=== PATIENT | male | born 1960 | race Native Hawaiian/Other Pacific Islander ===

== ENCOUNTER 2019-01-16 07:40 | Inpatient (IN) ==
--- NOTE | 2019-01-02 12:40 | Anesthesiology Consultation ---
Date of Service January 02, 2019 Assessment & Plan (1) Encounter for pre-operative examination: Plan: - Check BSG AM DOS - Okay to continue ASA perioperatively per surgeon. - Cardio= 10/23/18= "BP is at upper limit of acceptable (140's/80's; similar BP at PAT visit 12/2018). Continued on current regimen. - PCP= 01/06/19= "medically stable." Chart Review Chart Review: Acceptable Risk for Surgery and Patient seen in Pre Admission Testing Teaching & Discussion Pre-Anesthesia Teaching/Discussion Notes: Instructed NPO after midnight before surgery,except medications with 15 cc of water. Medication instructions provided according to the [facility] guidelines. History Surgery Operation Date: 01/16/19 14:15 Proposed Procedures p L4-L5 Decompression and Fusion - Willie Kelly DO Height/Weight Height: 5 ft 8 in Weight: 125.9 kg Allergies Allergy/AdvReac Type Severity Reaction Status Date / Time Sulfa (Sulfonamide Allergy Unknown Rash/ITCHY Verified 12/26/18 11:21 Antibiotics) Medications Home Medications Medication Instructions Recorded Confirmed Last Taken amlodipine 5 mg PO QAM 12/26/18 12/26/18 12/26/18 aspirin [Aspir-81] 81 mg PO DAILY 12/26/18 12/26/18 12/26/18 atorvastatin 40 mg PO HS 12/26/18 12/26/18 12/25/18 citalopram 20 mg PO QAM 12/26/18 12/26/18 12/26/18 clonidine HCl 0.1 mg PO BID 12/26/18 12/26/18 12/26/18 coenzyme Q10 [CoQ-10] 100 mg PO QAM 12/26/18 12/26/18 12/26/18 enalapril maleate 10 mg PO QAM 12/26/18 12/26/18 12/26/18 esomeprazole magnesium 40 mg PO QAM 12/26/18 12/26/18 12/26/18 glipizide 2.5 mg PO QAM 12/26/18 12/26/18 12/26/18 hydralazine 25 mg PO TID 12/26/18 12/26/18 12/26/18 hydrochlorothiazide 12.5 mg PO QAM 12/26/18 12/26/18 12/26/18 ibuprofen 600 mg PO BID 12/26/18 12/26/18 12/26/18 insulin aspart U-100 [Novolog 10 unit SUBCUT TIDM 12/26/18 12/26/18 Unknown Flexpen U-100 Insulin] insulin glargine [Basaglar KwikPen 35 unit SUBCUT HS 12/26/18 12/26/18 12/25/18 U-100 Insulin] lorazepam 0.5 mg PO BID 12/26/18 12/26/18 12/26/18 metformin 1,000 mg PO BID 12/26/18 12/26/18 12/26/18 multivitamin [Multiple Vitamins] 1 tab PO DAILY 12/26/18 12/26/18 Unknown Past Medical History Medical History Acid reflux Anxiety Diabetes IDDM Hyperlipidemia Hypertension Morbid obesity Sleep apnea CPAP Spinal stenosis Past Family History Family History Mother Family history of esophageal cancer Mother Family history of breast cancer Father Family history of lung cancer Past Surgical History Surgical History History of arthroscopy of left knee History of cardiac catheterization NO STENTS History of colonoscopy History of nasal surgery DEVIATED SEPTUM History of vasectomy Past Anesthesia History No Hx of Anesthesia Complications and No Family Hx of Anesthesia Complications History of PONV No Motion Sickness Screening History of Motion Sickness: No Social History Smoking Status: Former smoker tobacco type: cigarettes Do You Dip or Chew Tobacco: Yes (1 CAN/DAY - ADVISED NOT TO CHEW AM DOS) Smoking End Date: QUIT 3 YEARS AGO Hx Alcohol Use: Yes Alcohol type: beer alcohol intake frequency: a few times a week substance use type: does not use Exercise / Class Metabolic Activity III < 4 Walking/Shop/Light housework Review of Systems Bronchitis 11/2018 resolved s/p z-taisha. Patient denies chest pain, shortness of breath, wheezing, palpitations. Physical Exam Vital Signs VITALS BP 146/83 P 63 TEMP 98.5 SP02 98%RA RESP 18 Short, thick neck. Full neck and c-spine range of motion. Full TMJ range of motion. TMD 4 finger breaths Mallampati Score 2 Dentition: several missing sides/molars Lungs: clear throughout to auscultation Cardiac: regular rate and rhythm, no murmurs noted Spine: normal Carotid arteries: negative bruit Extremities: no edema Trimmed clifford. Testing Electrocardiogram Date: 01/02/19 Findings: + SB @ (55) Chest X-Ray Date: 02/03/18 Findings: + NAD Laboratory Results 01/02/19 13:26 01/02/19 13:06 Blood Type B Positive 01/02/19 13:06 Antibody Screen NEGATIVE 01/02/19 13:06 PT 10.0 Seconds (9.0-12.0) 01/02/19 13:06 INR 1.0 (0.9-1.1) 01/02/19 13:06 APTT 25.8 Seconds (21.0-31.0) 01/02/19 13:06 Hemoglobin A1c 8.3 % (4.5-5.6) H 01/02/19 13:26 Urine Color Yellow 01/02/19 13:26 Urine Appearance Clear (Clear) 01/02/19 13:26 Urine pH 5.5 (4.5-7.5) 01/02/19 13:26 Ur Specific [place] 1.013 (1.000-1.030) 01/02/19 13:26 Urine Protein Negative (Negative) 01/02/19 13:26 Urine Glucose (UA) Trace (Negative) H 01/02/19 13:26 Urine Ketones Negative (Negative) 01/02/19 13:26 Urine Nitrite Negative (Negative) 01/02/19 13:26 Ur Leukocyte Esterase Negative (Negative) 01/02/19 13:26 Surgeon made aware of elevated glucose/HGBA1C
--- NOTE | 2019-01-02 12:41 | PAT Medication Instructions ---
Medication Instructions Date of Service January 02, 2019 Home Medications amlodipine 5 mg PO QAM aspirin [Aspir-81] 81 mg PO DAILY atorvastatin 40 mg PO HS citalopram 20 mg PO QAM clonidine HCl 0.1 mg PO BID coenzyme Q10 [CoQ-10] 100 mg PO QAM enalapril maleate 10 mg PO QAM esomeprazole magnesium 40 mg PO QAM glipizide 2.5 mg PO QAM hydralazine 25 mg PO TID hydrochlorothiazide 12.5 mg PO QAM ibuprofen 600 mg PO BID insulin aspart U-100 [Novolog 10 unit SUBCUT TIDM insulin glargine [Basaglar KwikPen 35 unit SUBCUT HS lorazepam 0.5 mg PO BID metformin 1,000 mg PO BID multivitamin [Multiple Vitamins] 1 tab PO DAILY Continue as directed aspirin [Aspir-81] 81 mg PO DAILY ASK your surgeon for instructions ibuprofen 600 mg PO BID STOP taking 2 weeks before surgery (or as soon as possible if surgery is within 2 weeks) coenzyme Q10 [CoQ-10] 100 mg PO QAM DO NOT take the morning of surgery enalapril maleate 10 mg PO QAM glipizide 2.5 mg PO QAM hydralazine 25 mg PO TID hydrochlorothiazide 12.5 mg PO QAM insulin aspart U-100 [Novolog 10 unit SUBCUT TIDM metformin 1,000 mg PO BID multivitamin [Multiple Vitamins] 1 tab PO DAILY Take morning of surgery With a small sip of water, OTHERWISE NOTHING TO EAT OR DRINK AFTER MIDNIGHT: amlodipine 5 mg PO QAM citalopram 20 mg PO QAM clonidine HCl 0.1 mg PO BID esomeprazole magnesium 40 mg PO QAM hydralazine 25 mg PO TID lorazepam 0.5 mg PO BID Take evening before surgery atorvastatin 40 mg PO HS clonidine HCl 0.1 mg PO BID hydralazine 25 mg PO TID insulin aspart U-100 [Novolog 10 unit SUBCUT TIDM insulin glargine [Basaglar KwikPen 35 unit SUBCUT HS lorazepam 0.5 mg PO BID metformin 1,000 mg PO BID Other Notes If you have any questions please call us at [phone] or [phone] or [phone] or [phone]
[2019-01-02 14:09] LABS: Basophils # (auto) 0.06 K/uL (0-0.2); Eosinophils # (auto) 0.15 K/uL (0-0.5); Eosinophils % (auto) 2.6 %; Hematocrit (blood only) 39.2 % (42-52); Hemoglobin 13.3 g/dL (14.0-18.0); Immature Granulocytes # (auto) 0.03 K/uL (0.00-0.02); Immature Granulocytes % (auto) 0.5 %; Lymphocytes % (auto) 36.2 %; Mean Corpuscular Hgb Conc 33.9 g/dL (32-36); Mean Corpuscular Volume 90.5 fL (80-100); Mean Platelet Volume 11.4 fL (7.4-10.4); Monocytes # (auto) 0.63 K/uL (0.11-0.59); Monocytes % (auto) 10.9 %; Neutrophils # (auto) 2.83 K/uL (1.4-6.5); Neutrophils % (auto) 48.8 %; Platelet Count 255 K/uL (130-400); RDW Coefficient of Variation 13.4 % (11.5-14.5); RDW Standard Deviation 44.3 fL (36.4-46.3); Red Blood Count 4.33 M/uL (4.7-6.1)
[2019-01-02 14:14] LABS: Appearance Urine Clear (Clear); Bilirubin Urine Negative (Negative); Color Urine Yellow; Glucose Urine UA Trace (Negative); Ketones Urine Negative (Negative); Leukocyte Esterase Urine Negative (Negative); Nitrite Urine Negative (Negative); Protein Urine Negative (Negative); Specific Gravity Urine 1.013 (1.000-1.030); Urobilinogen Urine Negative (Negative); pH Urine 5.5 (4.5-7.5)
[2019-01-02 14:20] LABS: BUN Creatinine Ratio 11.9 (10-20); Calcium 8.3 mg/dl (8.5-10.1); Creatinine Clr Calc Pharmacy 130.1 ml/min; Est GFR (African American) 114.1; Est GFR (Non-African American) 98.5; Potassium 4.2 mmol/L (3.5-5.1)
[2019-01-02 14:35] LABS: Estimated Average Glucose 192 mg/dl
[2019-01-02 14:44] LABS: Partial Thromboplastin Time 25.8 Seconds (21.0-31.0)
[~2019-01-16 07:40] MED LIST: ACETAMINOPHEN 500 MG TAB PO SCH; CEFAZOLIN 3000MG 65 ML IV SCH; CeleBREX 200 MG CAP PO SCH; DEXAMETHASONE SOD INJ 4 MG/ML VIAL ONE; GABAPENTIN 300 MG x 2 PO SCH; GLYCOPYRROLATE 0.2 MG/ML VIAL ONE; HYDROmorphone INJ 2 MG/ML SYR/VIAL ONE; LIDOCAINE HCL 2% 2 ML VIAL/AMP(20MG/ML) INFIL ONE; LR 15ML/HR IV SCH; MIDAZOLAM HCL 1 MG/ML 2ML VIAL ONE; NEOSTIGMINE METHYLSULFATE 1 MG/ML 10ML VIAL ONE; ONDANSETRON INJ 2 MG/ML 2 ML VIAL ONE; PROPOFOL IV EMULSION 10 MG/ML 20 ML VIAL IV ONE; ROCURONIUM BROMIDE 10 MG/ML 5 ML VIAL ONE; SODIUM CHLORIDE 0.9% 1000ML IV SCH; fentaNYL citrate 100 MCG/2 ML VIAL ONE
--- NOTE | 2019-01-16 09:20 | History & Physical Bridge Note ---
Date of Service January 16, 2019 History & Physical Bridge Note I have examined the patient, reviewed the History & Physical and in the interval since the performance of the History & Physical I have noted the following changes of clinical significance: no changes noted
--- NOTE | 2019-01-16 09:21 | History & Physical Report ---
Date of Service January 16, 2019 Assessment & Plan (1) Neurogenic claudication due to lumbar spinal stenosis: L4-5 decompression and fusion possible L5-S1. Present on Admission?: Yes History of Present Illness Chief Complaint: Back and bilateral leg pain Primary Care Provider: SILVIO MARTIN This is a 58-year-old male that presents with chronic persistent back and bilateral leg pain. After failing extensive course of nonoperative care is here for surgical intervention. Allergies Allergy/AdvReac Type Severity Reaction Status Date / Time Sulfa (Sulfonamide Allergy Unknown Rash/ITCHY Verified 12/26/18 11:21 Antibiotics) Home Medications Home Medications Medication Instructions Recorded Confirmed Type amlodipine 5 mg PO QAM 12/26/18 12/26/18 History aspirin [Aspir-81] 81 mg PO DAILY 12/26/18 12/26/18 History atorvastatin 40 mg PO HS 12/26/18 12/26/18 History citalopram 20 mg PO QAM 12/26/18 12/26/18 History clonidine HCl 0.1 mg PO BID 12/26/18 12/26/18 History coenzyme Q10 [CoQ-10] 100 mg PO QAM 12/26/18 12/26/18 History enalapril maleate 10 mg PO QAM 12/26/18 12/26/18 History esomeprazole magnesium 40 mg PO QAM 12/26/18 12/26/18 History glipizide 2.5 mg PO QAM 12/26/18 12/26/18 History hydralazine 25 mg PO TID 12/26/18 12/26/18 History hydrochlorothiazide 12.5 mg PO QAM 12/26/18 12/26/18 History ibuprofen 600 mg PO BID 12/26/18 12/26/18 History insulin aspart U-100 [Novolog 10 unit SUBCUT TIDM 12/26/18 12/26/18 History Flexpen U-100 Insulin] insulin glargine [Basaglar KwikPen 35 unit SUBCUT HS 12/26/18 12/26/18 History U-100 Insulin] lorazepam 0.5 mg PO BID 12/26/18 12/26/18 History metformin 1,000 mg PO BID 12/26/18 12/26/18 History multivitamin [Multiple Vitamins] 1 tab PO DAILY 12/26/18 12/26/18 History Past Med/Surg History Surgical History History of arthroscopy of left knee History of cardiac catheterization NO STENTS History of colonoscopy History of nasal surgery DEVIATED SEPTUM History of vasectomy Family History Mother Family history of esophageal cancer Mother Family history of breast cancer Father Family history of lung cancer Social History Current Living Situation: Significant Other Other Information That Helps Us Care for You: No Feels Safe at Home: Yes Smoking Status: Former smoker Tobacco Type: cigarettes Do You Dip or Chew Tobacco: Yes (1 CAN/DAY - ADVISED NOT TO CHEW AM DOS) Smoking End Date: QUIT 3 YEARS AGO Hx Alcohol Use: Yes Alcohol type: beer Alcohol Intake Frequency: a few times a week Beliefs That Will Affect Care: None Preferred Language: Iranian Communication Ability: Effective Mortgage Field Inspector Required: No Physical Exam 2 Vital Signs (Past 24 Hours): Last Vital Signs Temp 36.9 C 01/16/19 09:04 Pulse 57 L 01/16/19 09:04 Resp 18 01/16/19 09:04 BP 141/87 H 01/16/19 09:04 Pulse Ox 97 01/16/19 09:04 Results & Data Medications Administered Acetaminophen (Tylenol) 1,000 mg PO PREOP SUNIL Stop: 01/16/19 18:00 Last Admin: 01/16/19 08:52 Dose: 1,000 mg Gabapentin (Neurontin) 600 mg PO PREOP SUNIL Stop: 01/16/19 18:00 Last Admin: 01/16/19 08:51 Dose: 600 mg
[2019-01-16] MEDS ORDERED: BUPIVACAINE 0.5 % 5 MG/1 ML MPF 30ML VIAL ONE (09:49)
[2019-01-16] MEDS ORDERED: BACITRACIN INJ 50,000 UNIT VIAL ONE (09:49)
[2019-01-16] MEDS ORDERED: fentaNYL citrate 100 MCG/2 ML VIAL ONE ×6 (10:36→13:05)
[2019-01-16] MEDS ORDERED: ATROPINE SULFATE 0.1 MG/ML 10ML SYR IV PRN (11:01)
[2019-01-16] MEDS ORDERED: NALOXONE HCL 0.4 MG/1 ML VIAL/CARP IV PRN (11:01)
[2019-01-16] MEDS ORDERED: PROMETHAZINE HCL 12.5 MG in SODIUM CHLORIDE 0.9% 50 ML IV PRN ×2 (11:01→14:31)
[2019-01-16] MEDS ORDERED: FLUMAZENIL 0.1 MG/1 ML 10 ML VIAL IV PRN (11:01)
[2019-01-16] MEDS ORDERED: ePHEDrine sulfate 50 MG/ML AMP IV PRN (11:01)
[2019-01-16] MEDS ORDERED: HYDROmorphone INJ 1 MG/ML SYRINGE IV PRN (11:01)
[2019-01-16] MEDS ORDERED: ONDANSETRON INJ 2 MG/ML 2 ML VIAL IV PRN ×2 (11:01→14:31)
[2019-01-16] MEDS ORDERED: GLYCOPYRROLATE 0.2 MG/ML VIAL ONE (11:29)
[2019-01-16] MEDS ORDERED: ALBUMIN HUMAN 5% 12.5 GM/250 ML VIAL IV ONE (12:05)
[2019-01-16] MEDS ORDERED: HYDROmorphone INJ 2 MG/ML SYR/VIAL ONE (12:05)
--- NOTE | 2019-01-16 12:49 | Fluoroscopy Report ---
LUMBAR SPINE, INTRAOPERATIVE FLUOROSCOPY HISTORY: L4 S1 decompression and fusion. FLUOROSCOPY TIME: 30 seconds. FINDINGS: Intraoperative fluoroscopy was provided for the lumbar spine. 2 fluoroscopic spot images we re obtained. Posterior decompression and fusion from L4 through S1 with pedicle screws and rods. The hardware is intact. IMPRESSION: Fluoroscopy provided for a L4-S1 posterior decompression and fusion. Electronically signed by: Alberto Coreas M.D. 01/16/2019 12:48 PM
[2019-01-16] MEDS ORDERED: FLOSEAL HEMOSTATIC MATRIX 10ML TOP ONE (12:50)
--- NOTE | 2019-01-16 12:50 | Operative Report ---
Post Operative Report Pre & Post Diagnosis Operation Date: 01/16/19 09:35 Pre-Op Diagnosis: Lumbar Spinal Stenosis with Neurogenic Claudication Post-Op Diagnosis: Lumbar Spinal Stenosis with Neurogenic Claudication Procedure Operation Date: 01/16/19 09:35 Actual Procedures #1 lumbar decompression medial facetectomies foraminotomies L3-4 L4-5 L5-S1. # 2 posterior spinal fusion L4-5 L5-S1. #3 placement posterior segmental instrumentation L4-5 L5-S1. #4 interbody fusion 5 L5-S1. #5 placement of titanium 12 x 26 mm cage L4-5 and 10 x 26 at L5-S1. #6 placement of local autograft in the posterior lateral gutters. #7 placement infuse collagen sponge bone mass graft in the posterior gutters and ostial amp and interbody space. Surgeon Willie Kelly, Dip Lube Operator Italo Leonard Estimated Blood Loss 675 Findings Consistent with Post-Op Diagnosis Specimens None Description of Procedure Patient was met with preoperatively case discussed all questions addressed. After informed consent obtained patient was taken to the operative suite underwent intubation and placed in a prone position on the Tato table on top of the Dheeraj frame. All bony prominences well-padded eyes inspected to ensure no external pressure placed upon the peer at this point the lumbar spine was prepped and draped in the normal sterile fashion. Sharp dissection with the assistance of Bovie cautery was performed down to and exposing the lamina and transverse processes of L4-L5 and sacral ala bilaterally. From a caudal cephalad fashion complete laminectomy of L5 L4 and partial laminectomy of L3 was performed including medial facetectomies foraminotomies addressing severe spinal stenosis. Pedicle screws were then placed in L4-L5 and S1 levels bilaterally with assistance of fluoroscopy the purposes tanja placed. Through a transforaminal approach on the left complete discectomy of L5-S1 was performed in plate coated to subcortical bleeding bone and a 10 x 26 mm titanium cage filled with osteo-amp bone graft tapped in position. Then proceeded to L4-[address] of a transforaminal approach on the left complete discectomy performed in plate coated to subcortical bleeding bone and a 12 x 26 mm titanium cage filled with ostium bone graft tapped in position. The rods then compressed locked in final position bilaterally. The transverse processes of L4 -L5 and sacral ala bur to subcortical bleeding bone. Infuse collagen sponge master graft local autograft placed in the posterior lateral gutters. 15 round TERENCE drain inserted. Incision was then closed with 1 Vicryl fascia 2-0 Vicryl subcutaneous and 4-0 Monocryl for final skin closure. Steri-Strip sterile dressing placed. Patient will continue to PACU stable disc. Please note Italo Leonard present throughout the entire procedure involved in patient positioning complex portions of the surgery and final skin closure. I attest to the content of the Intraoperative Record and any orders documented therein. Any exceptions are noted below.
[2019-01-16] MEDS ORDERED: ESMOLOL HCL INJ 10 MG/ML 10ML VIAL IV ONE ×2 (13:00→13:24)
[2019-01-16] MEDS ORDERED: ROCURONIUM BROMIDE 10 MG/ML 5 ML VIAL ONE ×2 (13:01)
[2019-01-16] MEDS ORDERED: KETOROLAC 30 MG/ML VIAL ONE (13:11)
[2019-01-16] MEDS ORDERED: ePHEDrine sulfate 50 MG/ML SYR ONE (13:11)
[2019-01-16] MEDS ORDERED: PHENYLEPHRINE 100MCG/ML 5ML SYR ONE (13:11)
[2019-01-16] MEDS: LABETALOL HCL IV 5 MG/ML 20ML IV PRN ×3 (13:32→13:42)
[2019-01-16 13:55] LABS: Hematocrit (blood only) 35.1 % (42-52); Hemoglobin 11.9 g/dL (14.0-18.0)
--- NOTE | 2019-01-16 14:08 | Anesthesiology Progress Note ---
Date of Service January 16, 2019 Anesthesia Post Procedure Vital Signs Vital Signs: Temp Pulse Pulse Resp BP BP Pulse Ox 01/16/19 14:07 36.4 C L 62 16 134/71 96 01/16/19 13:55 64 16 154/83 H 98 01/16/19 13:45 63 16 158/92 H 100 01/16/19 13:35 70 16 166/97 H 100 01/16/19 13:25 75 14 198/94 H 100 01/16/19 13:18 36.7 C 84 14 198/98 H 99 01/16/19 09:04 36.9 C 57 L 18 141/87 H 97 Pain Intensity Lower Back: Pain Intensity: 8 Notes Mental Status: alert / awake / arousable Patient Amnestic to Procedure: Yes Nausea / Vomiting: adequately controlled Pain: adequately controlled Airway Patency, RR, SpO2: stable & adequate BP & HR: stable & adequate Hydration State: stable & adequate Anesthetic Complications: no major complications apparent
[2019-01-16] MEDS ORDERED: ALUMINUM/MAGNESIUM SUSP 30 ML UDC PO PRN (14:31)
[2019-01-16] MEDS ORDERED: MAGNESIUM HYDROXIDE SUSP 30 ML UDC PO PRN (14:31)
[2019-01-16] MEDS ORDERED: LORazepam 0.5 MG/1 ML VIAL IV PRN (14:31)
[2019-01-16] MEDS ORDERED: BISACODYL 10 MG SUPP PR PRN (14:31)
[2019-01-16] MEDS ORDERED: HYDROmorphone INJ 0.5 MG/0.5 ML SYR IV PRN (14:31)
[2019-01-16] MEDS ORDERED: OXYCODONE HCL IR 5 MG TAB (IMMEDIATE RELEASE) PO PRN (14:31)
[2019-01-16] MEDS ORDERED: ACETAMINOPHEN 1,000 MG/100 ML VIAL IV PRN (14:31)
[2019-01-16] MEDS ORDERED: METOCLOPRAMIDE HCL INJ 5 MG/ML 2 ML VIAL IV PRN (14:31)
[2019-01-16] MEDS ORDERED: ONDANSETRON 4 MG TAB PO PRN (14:31)
[2019-01-16] MEDS ORDERED: FAMOTIDINE 20 MG TAB PO PRN (14:31)
[2019-01-16] MEDS ORDERED: DO NOT ADMINISTER PNEUMOCOCCAL VACCINE PRN (14:31)
[2019-01-16] MEDS ORDERED: DO NOT ADMINISTER FLU VACCINE PRN (14:31)
[2019-01-16] MEDS ORDERED: SOD PHOSPHATE/SOD BIPHOSPHATE ENEMA 132 ML BTL PR PRN (14:31)
[2019-01-16] MEDS ORDERED: LORazepam 0.5 MG TAB PO PRN (14:31)
[2019-01-16] MEDS ORDERED: GLUCOSE 10 TABS/TUBE PO PRN ×2 (14:50→15:08)
[2019-01-16] MEDS ORDERED: GLUCOSE 40% GEL 15 GM TUBE PO PRN ×2 (14:50→15:08)
[2019-01-16] MEDS ORDERED: CARBOHYDRATES FOR HYPOGLYCEMIA PO PRN ×2 (14:50→15:08)
[2019-01-16] MEDS ORDERED: DEXTROSE 50% 50 ML SYRINGE IV PRN ×2 (14:50→15:08)
[2019-01-16] MEDS ORDERED: GLUCAGON FOR INJ 1 MG VIAL IM PRN (14:50)
[2019-01-16] MEDS ORDERED: GLUCAGON FOR INJ 1 MG VIAL SQ PRN (15:08)
--- NOTE | 2019-01-16 15:16 | Consultation ---
Date of Consultation January 16, 2019 Assessment & Plan (1) Neurogenic claudication due to lumbar spinal stenosis: POD #0 Lumbar Decompression/Fusion L4-S1 by Dr. Kelly EBL 675ml TERENCE drain output 140ml tolerated procedure well -pain/wound management per ortho -Activity/PT/OT as directed by ortho -monitor cbc for abl anemia -incentive spirometry -vte prophylaxis per ortho (2) Hypertension: -bp controlled on multiple medication regimen -continue hydralazine, clonidine, amlodipine -hold HCTZ until volume status/bmp re-evaluated in a.m. (3) Hyperlipidemia: -continue atorvastatin (4) Diabetes: -last A1C 8.3 -takes Basaglar 35 units QHS -will reduce lantus 0-28 units per protocol -continue novolog per protocol -check A1C in a.m. (5) Sleep apnea: -cpap at HS (6) Acid reflux: -continue Famotidine and pantoprazole (7) Morbid obesity: -BMI 42 -encourage lifestyle modifications (8) DVT prophylaxis: -SCDS, early ambulation per ortho Disposition: Per primary Follow up: PCP Luis Carson upon discharge Patient was seen in collaboration with Dr. Nuñez, please see addendum Starting 01/16/19 patient will be followed by Dr. Palacios Thank you for this consultation. We will follow the patient with you during their hospital stay. You can reach a member of the [facility] Hospitalist Team 17/06 via pager @ [phone]. Supervising Physician Co-Signing Physician Notes Patient is a 58-year-old male who was seen and examined after having lumbar decompression fusion for neurogenic claudication lumbar spinal stenosis postop. Patient is doing well postop. Denies any chest pain, shortness of breath, dizziness. Complains of mild back pain at the surgical site, left lower extremity numbness which is present prior to surgery as well. On exam patient is moderately built and nourished, no distress, lungs are clear to auscultation , S1-S2, no murmur, Back: Surgical site in dressing, +drain, 1+ B/L LE edema, complete neuro exam not performed. Agree with holding diuretics. Continue ISS , basal Insulin for better blood glucose control. Monitor for postop anemia, bowel regimen to prevent constipation. DVT Px, wound care and activity as per primary team. I personally reviewed the record. Patient is interviewed and examined at bedside. Patient's care is coordinated with Celia Sim PA-C. Please refer to the documentation above for details of patient's presentation and for discussion of other issues. History of Present Illness Reason for Consultation: Postoperative medical management Requesting Physician: Dr. Kelly Attending Physician: Willie Kelly, DO History of Present Illness This is a 58-year-old male who has a significant past medical history of T2 DM, HTN, HLD, SABINO, morbid obesity, GERD, anxiety, lumbar spinal stenosis who presents to [facility] for elective lumbar surgery by Dr. Kelly. Patient has suffered from chronic back pain with radicular bilateral lower extremity symptoms. Patient failed outpatient nonoperative treatment and therefore presents today for elective intervention. He underwent preop cardiac clearance. His preop A1c was 8.3. His girlfriend is at bedside. Currently he complains of low back pain, 6/10. He denies any fever, chills, sweats, lightheadedness, dizziness, chest pain, shortness of breath, nausea, vomiting, abdominal pain. Currently has Vazquez catheter in place asking, "when can I get this out?" He offers no acute complaints or questions. Allergies Allergy/AdvReac Type Severity Reaction Status Date / Time Sulfa (Sulfonamide Allergy Unknown Rash/ITCHY Verified 12/26/18 11:21 Antibiotics) Home Medications Home Medications Medication Instructions Recorded Confirmed Type amlodipine 5 mg PO QAM 12/26/18 01/16/19 History aspirin [Aspir-81] 81 mg PO DAILY 12/26/18 01/16/19 History atorvastatin 40 mg PO HS 12/26/18 01/16/19 History citalopram 20 mg PO QAM 12/26/18 01/16/19 History clonidine HCl 0.1 mg PO BID 12/26/18 01/16/19 History coenzyme Q10 [CoQ-10] 100 mg PO QAM 12/26/18 01/16/19 History enalapril maleate 10 mg PO QAM 12/26/18 01/16/19 History esomeprazole magnesium 40 mg PO QAM 12/26/18 01/16/19 History glipizide 2.5 mg PO QAM 12/26/18 01/16/19 History hydralazine 25 mg PO TID 12/26/18 01/16/19 History hydrochlorothiazide 12.5 mg PO QAM 12/26/18 01/16/19 History ibuprofen 600 mg PO BID 12/26/18 01/16/19 History insulin aspart U-100 [Novolog 10 unit SUBCUT TIDM 12/26/18 01/16/19 History Flexpen U-100 Insulin] insulin glargine [Basaglar KwikPen 35 unit SUBCUT HS 12/26/18 01/16/19 History U-100 Insulin] lorazepam 0.5 mg PO BID 12/26/18 01/16/19 History metformin 1,000 mg PO BID 12/26/18 01/16/19 History multivitamin [Multiple Vitamins] 1 tab PO DAILY 12/26/18 01/16/19 History Patient History Family History Mother Family history of esophageal cancer Mother Family history of breast cancer Father Family history of lung cancer Social History Current Living Situation: Significant Other Other Information That Helps Us Care for You: No Feels Safe at Home: Yes Smoking Status: Former smoker Tobacco Type: cigarettes Do You Dip or Chew Tobacco: Yes (1 CAN/DAY - ADVISED NOT TO CHEW AM DOS) Smoking End Date: QUIT 3 YEARS AGO Hx Alcohol Use: Yes Alcohol type: beer Alcohol Intake Frequency: a few times a week Beliefs That Will Affect Care: None Preferred Language: Georgian Communication Ability: Effective Chemistry Teacher Required: No Review of Systems As noted per HPI, 10 systems reviewed and negative unless noted above. Physical Exam 2 Vital Signs (Past 24 Hours): Last Vital Signs Temp 36.7 C 01/16/19 15:01 Pulse 77 01/16/19 15:01 Resp 20 01/16/19 15:01 BP 125/73 01/16/19 15:01 Pulse Ox 95 01/16/19 15:01 Physical Exam: Gen: WD/WN, M, morbidly obese, NAD, sitting up in bed, pleasant , conversing easily Head: Normocephalic, Atraumatic Eyes: Sclera normal, no conjunctival injection, PERRLA, EOMI ENT: Gross hearing intact, normal pharynx, mucous membranes moist Neck: supple, no adenopathy, No JVD, no bruit, Resp: Clear to auscultation b/l, no wheeze, rales, rhonchi. Normal insp/exp effort, no accessory muscle use CV: Regular rate, regular rhythm, 1/6 RICHARD soft cardiac apex, no rub, gallop, or ectopy Abd: +BS x 4, firm, distended secondary to obesity, nontender, Musculoskeletal: moves extremities active rom x 4, strength intact, good web ui software engineer strength Extremities: No edema bilaterally, bilateral SCDs in place Skin: warm, moist, no rash, negative turgor, cap refill < 2sec, lumbar incision CDI, TERENCE drain with serosanguineous drainage Neuro: Alert and oriented x 3, speech normal, good mood/affect, cran nerve 2-12 intact grossly : deferred Results & Data Laboratory Results Short CBC 01/16/19 Range/Units 13:45 Hgb 11.9 L (14.0-18.0) g/dL Hct 35.1 L (42-52) % Preoperative A1c 8.3 BUN/creatinine 9 and 0.80 Diagnostic Findings Lumbar Spine X-ray: FINDINGS: Intraoperative fluoroscopy was provided for the lumbar spine. 2 fluoroscopic spot images were obtained. Posterior decompression and fusion from L4 through S1 with pedicle screws and rods. The hardware is intact. IMPRESSION: Fluoroscopy provided for a L4-S1 posterior decompression and fusion. ECG Rate (beats per minute): 55 Rhythm: sinus bradycardia _ (1) Sleep apnea Sleep apnea type: unspecified type Qualified Code(s): G47.30 - Sleep apnea, unspecified (2) Diabetes Diabetes mellitus complication status: with unspecified complications Diabetes mellitus fdc insulin use: with extermination inspector use Diabetes mellitus type: type 2 Qualified Code(s): E11.8 - Type 2 diabetes mellitus with unspecified complications; Z79.4 - residential (current) use of insulin (3) Hyperlipidemia Hyperlipidemia type: unspecified Qualified Code(s): E78.5 - Hyperlipidemia, unspecified (4) Acid reflux Esophagitis presence: esophagitis presence not specified Qualified Code(s): K21.9 - Gastro-esophageal reflux disease without esophagitis (5) Hypertension Hypertension type: essential hypertension Qualified Code(s): I10 - Essential (primary) hypertension
[2019-01-16] MEDS: ACETAMINOPHEN 500 MG TAB PO PRN (16:01)
[2019-01-16] MEDS: SODIUM CHLORIDE 0.9% 1000ML 1,000 ML IV SCH ×2 (16:05→22:07)
[2019-01-16] MEDS: CEFAZOLIN 2000MG 2,000 MG/15 ML SYR IV SCH (18:07)
[2019-01-16] MEDS: KETOROLAC 30 MG/ML VIAL IV SCH (18:08)
[2019-01-16] MEDS: INSULIN ASPART 100 UNITS/ML 3 ML PEN SC SCH ×2 (18:37→21:19)
[2019-01-16] MEDS ORDERED: INSULIN GLARGINE SOLOSTAR 100 UNITS/ML 3 ML PEN SQ SCH (21:00)
[2019-01-16] MEDS: ATORVASTATIN 40 MG TAB PO SCH (21:16)
[2019-01-16] MEDS: cloNIDine HCl 0.1 MG TAB PO SCH (21:16)
[2019-01-16] MEDS: DOCUSATE SODIUM/SENNA 50/8.6MG TAB PO SCH (21:16)
[2019-01-16] MEDS: INSULIN GLARGINE SOLOSTAR 100 UNITS/ML 3 ML PEN SQ SCH (21:18)
[2019-01-16] MEDS: LORazepam 0.5 MG TAB PO SCH (21:24)
[2019-01-17] MEDS: KETOROLAC 30 MG/ML VIAL IV SCH ×3 (00:28→11:46)
[2019-01-17] MEDS ORDERED: INSULIN ASPART 100 UNITS/ML 3 ML PEN SC ONE (02:00)
[2019-01-17] MEDS ORDERED: Nursing to Pharmacy Communication ONE (02:00)
[2019-01-17] MEDS: CEFAZOLIN 2000MG 2,000 MG/15 ML SYR IV SCH (02:07)
[2019-01-17] MEDS: POLYETHYLENE (MIRALAX) 17 GM PACK PO SCH ×4 (05:11→23:47)
[2019-01-17 05:57] LABS: Basophils # (auto) 0.01 K/uL (0-0.2); Basophils % (auto) 0.1 %; Hematocrit (blood only) 31.8 % (42-52); Hemoglobin 10.6 g/dL (14.0-18.0); Immature Granulocytes # (auto) 0.05 K/uL (0.00-0.02); Immature Granulocytes % (auto) 0.4 %; Lymphocytes # (auto) 1.49 K/uL (1.2-3.4); Lymphocytes % (auto) 10.8 %; Mean Corpuscular Hgb Conc 33.3 g/dL (32-36); Mean Corpuscular Volume 90.6 fL (80-100); Mean Platelet Volume 10.9 fL (7.4-10.4); Monocytes % (auto) 7.2 %; Neutrophils % (auto) 81.5 %; Platelet Count 241 K/uL (130-400); RDW Coefficient of Variation 13.7 % (11.5-14.5); RDW Standard Deviation 45.1 fL (36.4-46.3); Red Blood Count 3.51 M/uL (4.7-6.1); White Blood Count 13.85 K/uL (4.8-10.8)
[2019-01-17] MEDS ORDERED: glipiZIDE ER 2.5 MG TABCR PO SCH (06:30)
[2019-01-17 06:33] LABS: BUN Creatinine Ratio 12.6 (10-20); Calcium 7.5 mg/dl (8.5-10.1); Creatinine Clr Calc Pharmacy 108.4 ml/min; Est GFR (African American) 100.6; Est GFR (Non-African American) 86.8; Potassium 3.8 mmol/L (3.5-5.1)
[2019-01-17] MEDS: LORazepam 0.5 MG TAB PO SCH ×2 (07:27→21:12)
[2019-01-17] MEDS: cloNIDine HCl 0.1 MG TAB PO SCH ×2 (07:27→21:11)
[2019-01-17] MEDS: CITALOPRAM 20 MG TAB PO SCH (07:27)
[2019-01-17] MEDS: ACETAMINOPHEN 500 MG TAB PO PRN (07:27)
[2019-01-17] MEDS: PANTOprazole 40 MG TAB PO SCH (07:28)
[2019-01-17] MEDS: MULTIVITAMIN TAB PO SCH (07:28)
[2019-01-17] MEDS: NICOTINE 14 MG/24 HR PATCH TD SCH (07:28)
[2019-01-17] MEDS: ENALAPRIL MALEATE 10 MG TAB PO SCH (07:28)
[2019-01-17] MEDS: AMLODIPINE BESYLATE 5 MG TAB PO SCH (07:29)
[2019-01-17] MEDS: ASPIRIN 81 MG ECTAB PO SCH (07:29)
[2019-01-17 07:38] LABS: Estimated Average Glucose 192 mg/dl
[2019-01-17] MEDS: INSULIN ASPART 100 UNITS/ML 3 ML PEN SC SCH ×4 (08:54→21:14)
[2019-01-17] MEDS ORDERED: NON-FORMULARY MEDICATION (Coenzyme Q10 [Coq-10] 100 MG) PO SCH (09:00)
[2019-01-17] MEDS ORDERED: hydroCHLOROthiazide 25 MG TAB PO SCH (09:00)
--- NOTE | 2019-01-17 10:21 | Orthopedic Progress Note ---
Date of Service January 17, 2019 Assessment & Plan (1) Neurogenic claudication due to lumbar spinal stenosis: Patient overall is doing well. We will continue with physical therapy this morning. Maintain TERENCE drain. Discontinue Vazquez catheter after physical therapy. Continue with bowel regimen. DVT prophylaxis is in the form of teds and SCDs. Anticipate discharge home within the next 24-48 hours. Supervising Physician Co-Signing Physician Notes Dr. Willie Kelly Kwame Magdy is postoperative day 1 lumbar decompression fusion L4-S1. Overall he states he is doing well. He denies radicular leg pain. Still has numbness in both of his feet which he had preoperatively. TERENCE drain output last shift was 70 cc. A total of 535 cc past 24 hours. H&H are 10.6 and 31.8 respectively. Vazquez is intact and draining. Physical Exam 2 Vital Signs (Past 24 Hours): Last Vital Signs Temp 36.9 C 01/17/19 07:32 Pulse 66 01/17/19 07:32 Resp 18 01/17/19 07:32 BP 124/72 01/17/19 07:32 Pulse Ox 95 01/17/19 07:32 Physical Exam: He sitting in a chair. is present in the room. He is in no obvious distress. Alert and oriented x3. Calves are soft nontender bilateral lower extremities. Strength is intact bilateral lower extremities. Lumbar dressing is clean dry and intact. Constitutional: well nourished Eyes: normal visual valdez by confrontation ENMT: external ear and nose normal, oropharynx normal Neck: normal visual inspection Respiratory: normal respiratory effort Cardiovascular: Rate/Rhythm: regular rate Gastrointestinal (Abdomen): Inspection/Auscultation: abdomen normal to inspection Musculoskeletal: no cyanosis or clubbing, extremities motor strength 5/5 Extremities: extremities normal to inspection and strength 5/5 throughout Skin: no rashes, warm and dry Neurologic: patellar DTR's 2+ bilat, sensation intact normal touch/pain/ proprioception, deep tendon reflexes 2+ bilaterally and moves all extremities Psychiatric: A+Ox3, euthymic affect
[2019-01-17] MEDS: SODIUM CHLORIDE 0.9% 1000ML 1,000 ML IV SCH (14:44)
--- NOTE | 2019-01-17 15:50 | Hospitalist Progress Note ---
Date of Service January 17, 2019 Assessment & Plan (1) Neurogenic claudication due to lumbar spinal stenosis: Lumbar Decompression/Fusion L4-S1 by Dr. Kelly Operation Date: 01/16/19 09:35 (#1 lumbar decompression medial facetectomies foraminotomies L3-4 L4-5 L5-S1. # 2 posterior spinal fusion L4-5 L5-S1. #3 placement posterior segmental instrumentation L4-5 L5-S1. #4 interbody fusion 5 L5-S1. #5 placement of titanium 12 x 26 mm cage L4-5 and 10 x 26 at L5-S1. #6 placement of local autograft in the posterior lateral gutters. #7 placement infuse collagen sponge bone mass graft in the posterior gutters and ostial amp and interbody space.) -Estimated blood loss from procedure 675ml -continue to have TERENCE drain with serosanguinos output Acute blood loss anemia from surgery Hemoglobin 10.6 on 01/17/19; patient hemodynamically stable no need to transfuse at this time pain is controlled with current pain medications (2) Hypertension: -bp controlled on multiple medication regimen -continue hydralazine, clonidine, amlodipine -HCTZ may be resumed starting 01/18/19 (3) Hyperlipidemia: -continue atorvastatin (4) Diabetes: Type 2 Diabetes mellitus on jail current use of insulin -takes Basaglar 35 units QHS -continue lantus 0-28 units per protocol while inpatient -continue novolog per protocol -HbA1c 8.3 (5) Sleep apnea: Obstructive sleep apnea provide CPAP at night (6) Acid reflux: -continue Famotidine and pantoprazole (7) Morbid obesity: -BMI 42 -encourage lifestyle modifications (8) DVT prophylaxis: -SCDS, early ambulation per ortho Primary Care doctor is Luis Carson as outpatient Subjective Patient seen and examined while sitting up in bed Has TERENCE drain from back draining serosanguinous fluid Patient reports he have been ambulatory denies chest pain or shortness of breath. denies acute back pain or leg pain. denies abdominal pain Physical Exam 2 Vital Signs (Past 24 Hours): Last Vital Signs Temp 36.5 C 01/17/19 15:14 Pulse 69 01/17/19 15:14 Resp 22 01/17/19 15:14 BP 136/80 01/17/19 15:14 Pulse Ox 97 01/17/19 15:14 Constitutional: + obese Eyes: PERRL, conjunctivae normal, anicteric sclerae ENMT: external ear and nose normal, oropharynx normal Neck: trachea midline, no thyromegaly Respiratory: normal respiratory effort, lungs clear to auscultation Cardiovascular: RRR, no murmur, no edema Gastrointestinal (Abdomen): normal bowel sounds, soft, nontender, no hepatosplenomegaly Musculoskeletal: Head/Neck/Chest: normocephalic and head atraumatic TERENCE drain from the back Neurologic: PERRL, EOMI, accommodation nl, no face palsy, no dysarthria CN' s II-XI intact bilaterally Psychiatric: A+Ox3, euthymic affect _ (1) Sleep apnea Sleep apnea type: unspecified type Qualified Code(s): G47.30 - Sleep apnea, unspecified (2) Diabetes Chronic kidney disease stage: Diabetes mellitus complication detail: Diabetes mellitus complication status: with unspecified complications Diabetes mellitus jail insulin use: with jail use Diabetes mellitus macular edema: Diabetes mellitus type: type 2 Diabetic retinopathy severity: Laterality: Proliferative retinopathy type: Qualified Code(s): E11.8 - Type 2 diabetes mellitus with unspecified complications; Z79.4 - ocean transportation intermediary (current) use of insulin (3) Hyperlipidemia Hyperlipidemia type: unspecified Qualified Code(s): E78.5 - Hyperlipidemia, unspecified (4) Acid reflux Esophagitis presence: esophagitis presence not specified Qualified Code(s): K21.9 - Gastro-esophageal reflux disease without esophagitis (5) Hypertension Hypertension type: essential hypertension Qualified Code(s): I10 - Essential (primary) hypertension
[2019-01-17] MEDS: DOCUSATE SODIUM/SENNA 50/8.6MG TAB PO SCH (21:11)
[2019-01-17] MEDS: ATORVASTATIN 40 MG TAB PO SCH (21:11)
[2019-01-17] MEDS: INSULIN GLARGINE SOLOSTAR 100 UNITS/ML 3 ML PEN SQ SCH (21:14)
[2019-01-17] MEDS: TRAMADOL HCL 50 MG TABLET PO PRN (23:46)
[2019-01-18] MEDS ORDERED: Nursing to Pharmacy Communication ONE (00:50)
[2019-01-18] MEDS: ACETAMINOPHEN 500 MG TAB PO PRN (03:23)
[2019-01-18] MEDS: TRAMADOL HCL 50 MG TABLET PO PRN (07:15)
[2019-01-18] MEDS: cloNIDine HCl 0.1 MG TAB PO SCH (07:15)
[2019-01-18] MEDS: PANTOprazole 40 MG TAB PO SCH (07:15)
[2019-01-18] MEDS: CITALOPRAM 20 MG TAB PO SCH (07:15)
[2019-01-18] MEDS: ENALAPRIL MALEATE 10 MG TAB PO SCH (07:15)
[2019-01-18] MEDS: MULTIVITAMIN TAB PO SCH (07:16)
[2019-01-18] MEDS: AMLODIPINE BESYLATE 5 MG TAB PO SCH (07:16)
[2019-01-18] MEDS: NICOTINE 14 MG/24 HR PATCH TD SCH (07:16)
[2019-01-18] MEDS: ASPIRIN 81 MG ECTAB PO SCH (07:16)
[2019-01-18] MEDS: LORazepam 0.5 MG TAB PO SCH (07:18)
[2019-01-18] MEDS: INSULIN ASPART 100 UNITS/ML 3 ML PEN SC SCH (07:31)
--- NOTE | 2019-01-18 08:44 | Hospitalist Progress Note ---
Date of Service January 18, 2019 Assessment & Plan (1) Neurogenic claudication due to lumbar spinal stenosis: Lumbar Decompression/Fusion L4-S1 by Dr. Kelly Operation Date: 01/16/19 09:35 (#1 lumbar decompression medial facetectomies foraminotomies L3-4 L4-5 L5-S1. # 2 posterior spinal fusion L4-5 L5-S1. #3 placement posterior segmental instrumentation L4-5 L5-S1. #4 interbody fusion 5 L5-S1. #5 placement of titanium 12 x 26 mm cage L4-5 and 10 x 26 at L5-S1. #6 placement of local autograft in the posterior lateral gutters. #7 placement infuse collagen sponge bone mass graft in the posterior gutters and ostial amp and interbody space.) -Estimated blood loss from procedure 675ml -continue to have TERENCE drain with serosanguinos output Acute blood loss anemia from surgery Hemoglobin 10.6 on 01/17/19; patient hemodynamically stable and asymptomatic from anemia defer to orthopedic service on when to discontinue the TERENCE drain pain is controlled with current pain medications (2) Hypertension: -bp controlled on multiple medication regimen -continue hydralazine, clonidine, amlodipine -HCTZ may be resumed starting 01/18/19 (3) Hyperlipidemia: -continue atorvastatin (4) Diabetes: 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 -takes Basaglar 35 units QHS at home -HbA1c 8.3 -glucose today is better controlled as patient is more removed from the time of preop steroids -continue lantus 0-28 units per protocol and novolog per protocol while inpatient -expect that patient can resume home dose insulin, patient should have follow up with primary care doctor on discharge on outpatient diabetes mellitus management to lower hbA1c over time (5) Sleep apnea: Obstructive sleep apnea provide CPAP at night (6) Acid reflux: -continue Famotidine and pantoprazole (7) Morbid obesity: -BMI 42 -encourage lifestyle modifications (8) DVT prophylaxis: -SCDS, early ambulation per ortho Primary Care doctor is Luis Carson as outpatient Subjective Patient was seen to be ambulatory with therapy in the hallway Patient seen and examined while sitting up in bed Has TERENCE drain from back draining serosanguinous fluid denies chest pain or shortness of breath. denies lightheadedness denies acute back pain or leg pain. denies abdominal pain Physical Exam 2 Vital Signs (Past 24 Hours): Last Vital Signs Temp 37.0 C 01/18/19 06:36 Pulse 74 01/18/19 06:36 Resp 18 01/18/19 06:36 BP 129/80 01/18/19 06:36 Pulse Ox 95 01/18/19 06:36 Constitutional: + obese Eyes: PERRL, conjunctivae normal, anicteric sclerae ENMT: external ear and nose normal, oropharynx normal Neck: trachea midline, no thyromegaly Respiratory: normal respiratory effort, lungs clear to auscultation Cardiovascular: RRR, no murmur, no edema Gastrointestinal (Abdomen): normal bowel sounds, soft, nontender, no hepatosplenomegaly Musculoskeletal: Head/Neck/Chest: normocephalic and head atraumatic Neurologic: PERRL, EOMI, accommodation nl, no face palsy, no dysarthria CN' s II-XI intact bilaterally Psychiatric: A+Ox3, euthymic affect _ (1) Hypertension Hypertension type: essential hypertension Qualified Code(s): I10 - Essential (primary) hypertension (2) Hyperlipidemia Hyperlipidemia type: unspecified Qualified Code(s): E78.5 - Hyperlipidemia, unspecified (3) Diabetes Diabetes mellitus type: type 2 Diabetes mellitus terminal superintendent insulin use: with terminal superintendent use Diabetes mellitus complication status: with unspecified complications Diabetes mellitus complication detail: Diabetic retinopathy severity: Proliferative retinopathy type: Diabetes mellitus macular edema: Laterality: Chronic kidney disease stage: Qualified Code(s): E11.8 - Type 2 diabetes mellitus with unspecified complications; 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
--- NOTE | 2019-01-18 10:10 | Discharge Summary ---
Date of Service January 18, 2019 Admission HPI Per Admitting Provider This is a 58-year-old male that presents with chronic persistent back and bilateral leg pain. After failing extensive course of nonoperative care is here for surgical intervention. Surgery includes posterior lumbar decompression fusion L4-5, L5-S1. He has trialed and failed conservative treatment. Admission Exam (Per Admitting) Constitutional well nourished Eyes normal visual valdez by confrontation ENMT external ear and nose normal, oropharynx normal Neck normal visual inspection Respiratory normal respiratory effort Cardiovascular Rate/Rhythm: regular rate Gastrointestinal (Abdomen) Inspection/Auscultation: abdomen normal to inspection Musculoskeletal no cyanosis or clubbing, extremities motor strength 5/5 Extremities: extremities normal to inspection and strength 5/5 throughout Skin no rashes, warm and dry Neurologic patellar DTR's 2+ bilat, sensation intact normal touch/pain/proprioception, deep tendon reflexes 2+ bilaterally and moves all extremities Psychiatric A+Ox3, euthymic affect Discharge Data Consultations 01/16/19 14:31 Consult Case Management - Discharge Planning Routine Consult Hospitalist Routine Procedures Performed Operation Date: 01/16/19 09:35 Actual Procedures p L4-L5, L5-S1 Decompression and Fusion(Not Applicable) - Willie Kelly, DO Hospital Course (1) Neurogenic claudication due to lumbar spinal stenosis: Patient overall is doing well. We will continue with physical therapy this morning. Maintain TERENCE drain. Discontinue Vazquez catheter after physical therapy. Continue with bowel regimen. DVT prophylaxis is in the form of teds and SCDs. Anticipate discharge home within the next 24-48 hours. His hospital course has been uncomplicated. He is made progress with physical therapy. Pain is been controlled. He has had a bowel movement on postop day 2. He was discharged home on postoperative day 2. Discharge Instructions ACTIVITY RECOMMENDATIONS: SELF CARE INSTRUCTIONS AFTER THORACIC/LUMBAR FUSIONS 1. You may walk to your tolerance. It is good exercise for your legs and back. Expect some back and intermittent leg aches and pains. 2. You may perform "counter-top" level activities (make a sandwich, aleks with a project, etc.). 3. No bending or lifting of more than 10 pounds or back twisting of any nature (roll like a log when turning in bed). 4. You may ride in a car for 20-30 minutes at a time. No driving until after your first visit with your doctor. 5. Frequent changes of position and restricting sitting to 30 minutes at a time will help limit the amount of back spasms and stiffness you may experience. 6. You may discontinue the use of ambulatory aids (cane, crutches, etc.) once your strength and confidence allow. 7. You may machine clothing worker the shower and let water strike your incision when you arrive home at least once daily. Do not take a tub bath, sit in a hot tub or go into a swimming pool until after your first recheck in the office. SPECIAL CARE INSTRUCTIONS: VERY IMPORTANT TO READ AND REVIEW A. Your surgical incision has been closed with a cosmetic suture under the skin that will dissolve in about 6 weeks. In 14 days, you can use a pair of clean scissors and cut the suture that is left outside of the skin at the ends of your incision. 1. The small skin tapes can be removed 7 days after surgery if they have not fallen off by that point. 2. You may keep the wound open to air as much as possible to promote healing after post-op day number 5 unless told otherwise by your doctor. 3. If you think the wound looks like it is becoming infected (redness or worsening drainage) and/or you are experiencing fever, chill or worsening back pain and muscle spasms, contact the office so that we may evaluate you as soon as possible. B. Complications are uncommon, but please contact us if you have any signs or symptoms of: 1. wound infection (fever higher than 102.5 degrees F, redness, separation of wound, drainage, or increasing pain from the incision) 2. blood clots in legs (pain, swelling, redness and warmth in legs) 3. urinary tract infection (fever higher than 102.5 degrees F, burning upon urination or increased frequency of urination) 4. nerve problems (inability to walk on your toes or heels, numbness, loss of bowel or bladder control) 5. any other symptoms that concern you C. Please call the office at if you have any concerns or questions about your operation or recovery. D. No smoking! Smoking drastically decreases the chance of a solid fusion. E. Do not take any anti-inflammatory medications (Indocin, Advil, Motrin, Aspirin, Naprosyn, etc.) as these may inhibit the chance of a solid fusion. Tylenol is okay to take for pain. MANAGING PAIN AFTER SPINAL SURGERY 1. Narcotic medication is intended for short-term use and will be provided for surgical pain. Surgical pain usually lasts for a period of 4-6 weeks. Narcotic medication includes Percocet, Vicodin, Darvocet, Tylenol #3 or Lortab. 2. Longer-term pain is more appropriately treated with non-narcotic medication such as Tylenol ES. 3. Muscle spasm is not appropriately treated with narcotics. Muscle relaxers such as Soma, Flexeril or Skelaxin can be used along with Tylenol ES. 4. Remember that we all live with some "aches and pains". This is not unusual or uncommon after an injury or as we get older. a. Back pain is expected and may include muscle spasms for 4 to 6 weeks after surgery. The pain should gradually improve. If the pain worsens for no apparent reason, please contact the office. b. Intermittent leg pain may also be experienced and should not be concerned about unless it worsens for no apparent reason. If so, please contact the office. 5. We will provide appropriate medication within the normal guidelines of their prescribed use. We will also be very cautious and aware of potential abuse and extended duration of patients' medication needs. a. Pain medications are for your comfort and to assist with sleep and rest so that the tissue can heal. They are not provided in order to return to normal activity and should not be used through the day. To do so or worsening pain at night can result from ongoing tissue damage and development of tolerance to the prescribed medicine. 6. Please allow 2-3 days to process refills. Prescriptions will not be mailed but must be picked up at the office. FOLLOW UP VISIT: Keep your scheduled follow-up appointment. Any questions, please call the office at . Supervising Physician Co-Signing Physician Notes Dr. Willie Kelly
== END 2019-01-18 10:30 | disposition home or self-care (01) | DRG 454 ==
LOC: ASU 07:40 → 3E 12:56